=== PATIENT | female | born 1990 | race Caucasian/White ===

== ENCOUNTER 2019-05-23 12:39 | Outpatient (CLI) | payer OTHER, SELFPAY ==
--- NOTE | 2019-05-23 13:30 | NEURO_ITS ---
TEST: ELECTROENCEPHALOGRAM DIAGNOSIS: HEADACHES PATIENT NUMBER: [id number] EEG NUMBER: [id number] RECORDING DATE: 05/23/19 CLINICAL HISTORY: Patient reports she has been having headaches a lot and when they are really bad she seems to ?space out?. CONDITION OF RECORDING: Awake, drowsy and sleep EEG DESCRIPTION: Basic resting occipital frequency consists of small amount of poorly organized low voltage 8-10hz alpha mixed with low voltage 15-18hz beta. During drowsiness low voltage beta activity is seen diffusely mixed with waxing and waning posterior alpha rhythms. Bilateral symmetrical sleep activity is seen during sleep. Photic stimulation produced normal drive. Hyperventilation produced poor build-up. Nonparoxysmal. Nonfocal. Nonlateralizing. IMPRESSION: No significant abnormalities noted. MTDD
== END 2019-05-23 12:40 | disposition home or self-care (01) ==
LOC: ANHNEURO 12:41
PROVIDERS: PCP Physician Assistant; Visit Provider Psychiatry & Neurology Neurology
DX: R51 Headache (principal)
CPT/HCPCS: 95816